=== PATIENT | female | born 1960 | race Caucasian/White ===

== ENCOUNTER 2016-09-08 07:00 | Day surgery (SDC) | payer OTHER ==
--- NOTE | 2016-09-06 15:39 | PCM.ANEPRE ---
Anesthesia Pre-Op Review Reason for Review: STOP BANG 08/21 Anesthesia Recommendations: Proceed with Procedure Additional Comments proceed, final decision day of surgery. BMI 40, stop bang 08/21. Recommend f/u with primary care physician for sleep study. Follow LOPEZ precautions post op. Chart Reviewed by: Maria Elena Cruz DO September 06, 2016 15:39
[~2016-09-08] VITALS: Ht 165.1 cm; Wt 108.0 kg
[2016-09-08] VITALS (9 sets, daily range): BP systolic 114–145; BP diastolic 72–94; PULSE 54–86; RESP 12–16; O2SAT 94–100
[~2016-09-08 07:00] MED LIST: CHOL100045 PO; CYCL5TAB PO; FLUO20CA25 PO; KETACONAZOLE CREAM TP; LEVO88TA4 PO; LIP40 PO; MEDR10TA9 PO; PROP80CA2 PO; ZLP5T PO
[2016-09-08] MEDS ORDERED: Ondansetron 2 mg/mL 2 mL Inj ONE (07:01)
[2016-09-08] MEDS ORDERED: fentaNYL-PF 50 mCg/mL 2 mL Inj ONE (07:01)
[2016-09-08] MEDS ORDERED: Propofol 10,000 mCg/mL 20 mL Inj ONE (07:01)
[2016-09-08] MEDS ORDERED: Dexamethasone 4 mg/mL Inj ONE (07:01)
[2016-09-08] MEDS: Lactated Ringer's 1,000 ML IV SCH ×2 (07:24→10:14)
--- NOTE | 2016-09-08 07:49 | PCM.HPANE ---
Patient Data Surgeon Admitting Provider: Attending Provider:Talon Conner MD Primary Care Physician:[facility] Other Provider:Galina Palmer Anesthesia Reason for Visit Post-Menopausal Bleeding Ht/WT & BMI Height (Feet): 5 Height (Inches): 5 Weight (Kilograms): 108 Body Mass Index 39.00 Allergies Coded Allergies: DARWIN Inhibitors (Verified Adverse Reaction, Severe, COUGH, 09/08/16) fosinopril (Verified Adverse Reaction, Severe, COUGH, 09/08/16) Past Anesthesia History Anesthesia History: Denies:: Abnormal Airway, Anesthesia Reactions, Difficult Intubation, Fam Anesthesia Reaction, Fam Malignant Hypertherm, Malignant Hyperthermia Diabetes History Hx Diabetes?: No MRSA MRSA: No Medications Home Meds Incl Beta Farideh: Yes Date Beta Farideh Taken: September 07, 2016 Time Beta Farideh Taken: 2199 Reported Medications Cholecalciferol (Vitamin D3) (Vitamin D)1,000 Unit Capsule2,000 Unit PO DAILY # 1 BOTTLE Ref 0 09/05/16 Medroxyprogesterone 10 Mg Sjrbni77 Mg PO DAILY X 10 DAYS 09/05/16 Levothyroxine 88 Mcg Wdrvin87 Mcg PO DAILY Ref 0 09/05/16 [Ketaconazole Cream] No Conflict Check1 Applic TP Q2DAYS 09/05/16 Fluoxetine 20 Mg Odvcczm96 Mg PO DAILY Ref 0 09/05/16 Atorvastatin (Lipitor)40 Mg Ejztnz43 Mg PO DAILY Ref 0 09/05/16 Zolpidem (Ambien)5 Mg Tab10 Mg PO HS PRN For Insomnia Ref 0 12/09/13 Cyclobenzaprine N Tablet5 Mg PO BID PRN For Pain 12/09/13 Propranolol ER 80 Mg Cap.sa.24h80 Mg PO BID 12/09/13 Discontinued Reported Medications Sertraline HCl (Zoloft)20 Mg/1 Ml Oral.vluo817 Mg PO DAILY #1 BOTTLE Ref 0 12/09/13 Hydrocodone-Acetaminophen 5-325 mg 1 Each Tablet1-2 Each PO Q4 PRN For Pain Ref 0 12/09/13 History History of ENT Problems?: Yes HEENT History: Positive for:: TMJ (HX OF) Denies:: Abnormal Airway Difficult Intubation Dysphagia Hearing Problem Denture Type: None Teeth Condition: Within Normal Limits Other HEENT Pertinent History: HX POOR DENTITION Hx of Heart Problems?: Yes Cardiovascular History: Positive for:: Hypertension (HYPERLIPIDEMIA) Denies:: AICD Atrial Fibrillation Chest Pain Heart Murmur Pacemaker Valvular Heart Disease Hx of Respiratory Problem?: Yes Respiratory History: Denies:: Asthma COPD Cough Hemoptysis Pneumonia Tuberculosis Use of C-PAP Machine (SNORES) Hx Neurologic Problems?: Yes Neurological History: Positive for:: Headaches Denies:: CVA Dementia Other Neurological Pertinent: C/OF NEUROPATHY & PARESTHESIAS LE'S Hx of GI Problems?: Yes Other GI Pertinent History: C/OF IBS,DIARRHEA Hx of Problems?: No Female Hx: Denies:: Currently (TUBAL) Endometriosis (S/P ENDOMETRIAL BX) Skin History: Denies:: History Skin Disorders? Pressure Ulcers Hx Musculoskeletal Problems?: Yes Musculoskeletal History: Denies:: Back Injury (C/OF NECK & LOWER BACK PAIN) Joint Replacement Systemic Lupus Hx of Psycho/Social Problems?: Yes Psycho Social History: Positive for:: Anxiety Hx Depression Hx Surgeries?: Yes (ENDOMETRIAL BX) Hx Any Other Health Problems?: Yes Other History: Positive for:: Thyroid Disease Denies:: Cancer Endocrine Disease Hospitalization Hx Diabetes: No Hx Alcohol Use: YesAlcoholic Drinks Per Day: 5X/WEEK Smoking Status: Former Smoker Stop/Bang S-Snoring: Do You Snore Loudly: No T-Tired: feel tired, fatigued: Yes O-Obsered: Observed not breath: No P-Blood Pressure: treated: Yes B- Body Mass Index > 35 kg/m2: Yes A- Age over 50: Yes N- Neck Large Circumference: Yes G- Gender Male: No LOPEZ Total Score: 5 LOPEZ Risk Assessment: High Risk, =/>3 Yes LOPEZ Category 2: Yes Risk Assessment Category Category 1A: Patient has history of documented sleep apnea, and HAS NOT received any narcotic, sedative or anesthesia administration during this stay. Category 1B: Patient has history of documented sleep apnea, and HAS received any narcotic , sedative or anesthesia administration during this stay Category 2: Patient has SUSPECTED Obstructive Sleep Apnea, and HAS received any narcotic , sedative or anesthesia administration during this stay. Category 3: Patient has SUSPECTED Obstructive Sleep Apnea and HAS NOT received narcotic, sedative or anesthesia administration during this stay. Category 4: Outpatient in Procedural Areas with known sleep apnea or who screen positive for High Risk via the STOP/BANG questionnaire. Exam Exam Vital Signs Vital Signs Date Time Temp Pulse Resp B/P Pulse Ox O2 Delivery O2 Flow Rate FiO2 5/26/17 07:38 35.9 86 16 143/86 95 Room Air General Appearance: Alert, Oriented X3, Cooperative, No Acute Distress HEENT/AIRWAY: MP 4 Lungs: Clear to Auscultation, Normal Air Movement Heart: Exam Unremarkable, Regular Rate/Rhythm, No Murmurs/Rubs/Gallops Meds/Labs/Diagnostics Admission Meds Current Medications Lactated Ringer's (Lr) 1,000 ml @ 120 mls/hr Q8H20M IV Last administered on t 07:24; Start 09/08/16 at 05:00; Stop 09/08/16 at 13:19 Plan Impression Patient chart reviewed, patient interviewed and anesthestic plan with risks, benefits, and alternatives discussed, and informed consent obtained. NPO per Anesth. Guidelines: Yes ASA Physical Status: ASA2 Mod Systemic Disease Anesthetic Plan: GA Bene/Risks/Altern/Consents: Yes HP Complete Prior to Induction: Yes Evan Tidwell MD September 08, 2016 07:48
[2016-09-08] MEDS ORDERED: Lactated Ringer's 1,000 ML IV SCH (10:29)
[2016-09-08] MEDS ORDERED: Lactated Ringer's 500 ML IV PRN (10:29)
[2016-09-08] MEDS ORDERED: HYDROmorphone 1 mg/mL Inj IVPUSH PRN (10:30)
[2016-09-08] MEDS ORDERED: Atropine 0.4 mg/mL Inj IVPUSH PRN (10:30)
[2016-09-08] MEDS ORDERED: Phenylephrine 10,000 mCg/mL Inj IVPUSH PRN (10:30)
[2016-09-08] MEDS ORDERED: EPHEDrine Sulfate 50 mg/mL Inj IVPUSH PRN (10:30)
[2016-09-08] MEDS ORDERED: Ondansetron 2 mg/mL 2 mL Inj IVPUSH PRN (10:30)
[2016-09-08] MEDS ORDERED: MetoCLOpramide 5 mg/mL 2 mL Inj IVPUSH PRN (10:30)
[2016-09-08] MEDS ORDERED: Dexamethasone 4 mg/mL Inj IVPUSH PRN (10:30)
[2016-09-08] MEDS: fentaNYL-PF 50 mCg/mL 2 mL Inj IVPUSH PRN ×3 (11:30→11:58)
--- NOTE | 2016-09-08 11:35 | PCM.DIMED ---
Discharge Instructions Date of Service September 08, 2016 Dates of Hospitalization Diet Discharge Diet: No restrictions Activity Discharge Activity: No restrictions Call your provider Call your provider for: Fever or Chills, Shortness of breath, Bleeding, Chest pain, Vomitting, Excessive diarrhea, Weakness (unilateral) Patient Instructions Follow-up with PCP in: 2 weeks Talon Conner MD September 08, 2016 11:35
[2016-09-08] MEDS ORDERED: oxyCODONE-Acetamin 5-325 mg Tablet PO ONE (12:11)
--- NOTE | 2016-09-08 12:59 | PCM.ANEP1 ---
Post Anesthesia PACU Phase 1 Assessment Vital Signs Vital Signs Date Time Temp Pulse Resp B/P Pulse Ox O2 Delivery O2 Flow Rate FiO2 09/08/16 07:38 35.9 86 16 143/86 95 Room Air Level of Alertness: Awake, talking MICHEL's with Equal Strength: Yes Pain: No Nausea or Vomiting: No CV Function & Hydration Stable: Yes Airway Device: Oralpharangeal Airway Oxygen Delivery: Room Air Lungs: Clear to Auscultation, Normal Air Movement Dermatome Level: Full Sensation PACU Phase 2 Assessment Complications: No Follow up Care: N/A Patient Instructions Provided: Yes Evan Tidwell MD September 08, 2016 12:59
--- NOTE | 2016-09-08 15:27 | OP ---
[address] [address] OPERATIVE REPORT PATIENT: DOMENICA YANEZ : 1960 MR#: [id number] ADMIT: 09/08/2016 JOB ID: [id number] DATE OF SURGERY: 09/08/2016 PROCEDURE: Diagnostic hysteroscopy, polypectomy, endometrial curetting using MyoSure device. PREOPERATIVE DIAGNOSIS(ES): Postmenopausal bleeding. POSTOPERATIVE DIAGNOSIS(ES): 1. Postmenopausal bleeding. 2. Endometrial polyp. SURGEON: Talon Conner M.D. ANESTHESIA: Evan Tidwell M.D. ESTIMATED BLOOD LOSS: 50 mL. ESTIMATED URINE OUTPUT: 100 mL. FLUIDS: 800 mL of lactated Ringer. COMPLICATIONS: None. FINDINGS: Mildly prominent endometrium with polypoid structures at 6 o'clock. Normal size of the uterus. Unremarkable cervix, vagina and perineum. PROCEDURE: The patient was brought to the operating room, where she underwent general anesthesia without difficulty. The patient was placed in the dorsal lithotomy position using Kirill stirrups. She was prepped and draped in the usual surgical fashion. Time-out was performed verifying correct patient, correct procedure. Two Coelho retractors were placed into the vagina. The cervix was visualized and grasped with a tenaculum. It was dilated using Hegar dilators to a size of 8 mm. Using MyoSure hysteroscope, the uterine cavity was reviewed with the findings mentioned above. A small size MyoSure instrument was used to do polypectomy and remove the endometrium. As mentioned, the most prominent clinical suspicious area was located on the posterior aspect of the cavity at 6 o'clock. The specimen was removed and sent to Pathology. Total fluid deficit during hysteroscopy was 474 cc of normal saline. All the instruments were removed. The tenaculum entry point at the cervix was oozing blood and it was stopped with application of silver nitrate topically. When good hemostasis was reassured, the instruments were removed. The patient was repositioned back into the supine position. She tolerated the procedure well and was transferred to the recovery room in stable condition.
--- NOTE | 2016-09-13 15:57 | PATH ---
SURGICAL PATHOLOGY Attending Physician:Talon Conner MD CASE STATUS: Signed Out PATIENT NAME: DOMENICA YANEZ PID: [id number] : 1960 DATE COLLECTED:09/08/2016 22:28 SPECIMEN: Endometrium, Biopsy CLINICAL HISTORY: POSTMENOPAUSAL BLEEDING 1). ENDOMETRIAL POLYP FINAL DIAGNOSIS: Endometrial Polyp, Biopsy: Portions of disordered proliferative endometrium; negative for glandular hyperplasia, cytologic atypia, and malignancy. Many tissue fragments demonstrate prominent vessels, suggestive of polyp, if clinical and imaging findings are concordant. ICD10: N95.0 GROSS DESCRIPTION: Received in formalin, labeled with the patient' s name and "endometrial polyp", is a collection of wallis tissue fragments measuring 2.0 x 1.5 x 0.5 cm in aggregate. All fragments are totally submitted in one cassette. ([id number]) ICD-9 CODES: CPT CODES: 1: 47503 Electronically Signed Out Cristiana Celeste MD [facility] Pathology [facility] [address], [place] [address] Technical component performed at [facility], [address], [place], [address]
== END 2016-09-08 23:59 | disposition home or self-care (01) ==
LOC: SAS 07:00
PROVIDERS: ATTEND Legal Medicine
PROC: 0UDB8ZX Extraction of Endometrium, Via Natural or Artificial Opening Endoscopic, Diagnostic (ICD-10-PCS; 2016-09-08)
PROC: 0UB98ZX Excision of Uterus, Via Natural or Artificial Opening Endoscopic, Diagnostic (ICD-10-PCS; principal; 2016-09-08 08:45)
DX: N95.0 Postmenopausal bleeding (principal); N84.0 Polyp of corpus uteri; K76.89 Other specified diseases of liver; I10 Essential (primary) hypertension; F41.8 Other specified anxiety disorders; Z87.891 Personal history of nicotine dependence
CPT/HCPCS: 58558; 88305; J1100; J1885; J2250; J2405; J3010; J7120